=== PATIENT | female | born 1975 | race Caucasian/White ===

== ENCOUNTER 2016-11-12 13:56 | Emergency (ER) | payer OTHER ==
[~2016-11-12] VITALS: Ht 167.6 cm; Wt 82.5 kg
[~2016-11-12 13:56] MED LIST: ACIDOPHILUS LA1 EAC1 PO; ALDACTONE50 MG PO; ALOE VERA25 MG PO; ATARAX2 MG/ML PO; Atarax,Vistaril PO; BELLADONNA30 MG/100 MC; CLEARLAX17 GM PO; CYMBALTA60 MG PO; DELTASONE5 MG PO; DONNATAL1 TABLET PO; ELAVIL100 MG PO; ENDOCET 5-3251 EACH PO; Elavil PO; FIBER CHOICE1 TABLET PO; FIBER LAXATIVE625 M1 PO; FLECTOR 1.3%1 PATC1 TD; FLONASE16 G1 NS; FOLIC ACID0.4 MG PO; Flonase BOTH NARES; HI-CAL250 MG PO; HYCODAN SYRUP480 ML PO; IMITREX100 MG PO; IMITREX5 MG NS; LEXAPRO10 MG PO; LO LOESTRIN FE1 EACH PO; LYRICA100 MG PO; LYRICA300 MG PO; MIRALAX, GLYCOL1 PK1 PO; MIRALAX17 GM PO; Motrin PO; ORENCIA250 MG/10 IV; PRILOSEC40 MG PO; RENVELA800 MG PO; RISA-BID CAPLE1 EACH PO; RITALIN5 MG PO; SAVELLA25 MG PO; Tums PO; VITAMIN D1000 INTUN PO; VITAMIN D400 UNIT PO; VOLTAREN75 MG PO; ZOCOR20 MG PO; ZYRTEC10 M3 PO; Zocor PO; ZyrTEC PO; predniSONE PO
[2016-11-12 15:16] LABS: HEMATOCRIT 40.8 % (36.0-46.0); MCH 31.4 PG (29.0-34.0); MCHC 33.6 G/DL (30.0-36.0); MCV 93.4 FL (83-99); MEAN PLAT.VOLUME 9.6 uM^3 (9.5-12.4); PLATELET COUNT 308 K/uL (156-360); RBC DIS.WIDTH-CV 12.5 % (11.8-14.6); RBC DIS.WIDTH-SD 41.5 % (39-53); RED BLOOD COUNT 4.37 M/uL (3.80-5.20); WHITE BLOOD COUNT 7.8 K/uL (4.1-10.2)
[2016-11-12 15:27] LABS: CHLORIDE 106 mEq/L (99-109); POTASSIUM 3.5 mEq/L (3.7-5.4); SODIUM 141 mEq/L (136-147)
[2016-11-12 15:28] LABS: GLUCOSE 155 mg/dL (70-99)
[2016-11-12 15:30] LABS: ANION GAP 13 MEQ/L (2-14)
[2016-11-12 15:32] LABS: GFR ESTIMATE (CALCULATED) > 59 mL/min/
[2016-11-12 15:33] LABS: UREA NITROGEN (BUN) 8 mg/dL (9-23)
[2016-11-12 15:38] LABS: TROP-I INTERPRETATION NEGATIVE; TROPONIN-I < 0.01 ng/mL (0.0-0.30)
[2016-11-12 17:25] LABS: TOTAL BILIRUBIN 0.3 mg/dL (0.0-1.0)
[2016-11-12 17:26] LABS: ALKALINE PHOSPHATASE 65 IU/L (3-129)
[2016-11-12 17:29] LABS: DIRECT BILIRUBIN 0.2 mg/dL (0.0-0.3)
[2016-11-12 17:30] LABS: LIPASE 24 U/L (1.0-51.0)
[2016-11-12 17:47] VITALS: BP 141/98
[2016-11-12 18:59] LABS: TROP-I INTERPRETATION NEGATIVE; TROPONIN-I < 0.01 ng/mL (0.0-0.30)
== END 2016-11-12 20:21 | disposition left against medical advice (07) ==
LOC: EME 13:56
PROVIDERS: Nurse Practitioner Family
DX: R10.13 Epigastric pain (principal); M79.7 Fibromyalgia; E78.5 Hyperlipidemia, unspecified; I10 Essential (primary) hypertension; M06.9 Rheumatoid arthritis, unspecified; L40.50 Arthropathic psoriasis, unspecified
CPT/HCPCS: 71020; 74177; 80048; 80076; 81003; 83690; 84484; 85027; 93005; 99281; 99285; J2270; J2405; J7030